=== PATIENT | female | born 1980 | race Caucasian/White ===

== ENCOUNTER 2016-07-31 08:15 | Outpatient (CLI) | payer OTHER ==
--- NOTE | 2016-07-31 10:26 | DIAGNOSTIC IMAGING REPORT ---
PROCEDURE: US OB DETAILED ANATOMIC INDICATION: ANATOMY TECHNIQUE: [place] scale, color, and spectral Doppler images of the second trimester gravid uterus were obtained. COMPARISON: 07/26/2016 OB ultrasound FINDINGS: A single living intrauterine is in breech presentation. There is regular cardiac activity at a rate of 150 beats per minute. The placenta is anterior and away from the internal cervical os. The cervix is closed measuring approximately 3.7 in length. The amniotic fluid volume is subjectively normal. Biparietal diameter 4.3 cm of 18 weeks and 3-day Head circumference 16.4 cm of 19 weeks and 1 day Abdominal circumference 14.5 cm of 19 weeks and 6-day Femur length 3.2 cm of 19 weeks and 6 days Head to abdominal circumference ratio and femur length to abdominal circumference ratios are normal. Estimated weight 310 g Composite gestational age 19 weeks and 3 days, JOHNNY 12/22/2016 There was visualization of a number of normal structures including the intracranial contents, facial features, nuchal region, spine, four-chamber heart and outflow tracts to the extent that could be visualized, diaphragm, fluid-filled stomach, kidneys, abdomen, urinary bladder, upper and lower extremities, and genitals. A three-vessel umbilical cord, normal and placental cord insertion sites were seen. IMPRESSION: 1. Single living intrauterine with a composite gestational age of 19 weeks and 3 days, JOHNNY 12/22/2016 2. Symmetric and normal anatomy.
[2016-12-12] MEDS ORDERED: METFORMIN HCL500 MG PO (17:13)
[2016-12-12] MEDS ORDERED: ZOLOFT50 MG PO (17:15)
[2016-12-12] MEDS ORDERED: IRON325 MG PO (17:16)
== END 2016-07-31 23:00 ==
LOC: US SRH 08:15
DX: Z34.92 Encounter for supervision of normal pregnancy, unspecified, second trimester (principal); Z3A.19 19 weeks gestation of pregnancy

== ENCOUNTER 2016-10-17 14:28 | Outpatient (CLI) | payer OTHER ==
--- NOTE | 2016-10-17 15:54 | DIAGNOSTIC IMAGING REPORT ---
PROCEDURE: US OB RE-EVALUATION INDICATION: VAGINAL BLEEDING TECHNIQUE: Transabdominal manuel scale and color Doppler imaging was obtained of the third trimester gravid uterus. COMPARISON: 07/31/2016 FINDINGS: Single live intrauterine is in vertex presentation. Regular heart rate at 164 beats per minute. Placenta is anterior and has a normal appearance. No retroplacental hemorrhage. The cervix is shadowed by the head. Amniotic fluid index is 11.0 cm, within normal limits. Biparietal diameter 7.7 cm, 30 weeks 6 days Head circumference 28.1 cm, 30 weeks 5 days Abdominal circumference 27.1 cm, 31 weeks 1 day Femur length 5.6 cm, 29 weeks 4 days Composite gestational age 30 weeks 4 days Estimated weight 1606 g plus/minus 241 g, 30 weeks 6 days IMPRESSION: 1. Single living intrauterine . 2. No abruption in the anterior placenta. No previa.
[2016-12-12] MEDS ORDERED: METFORMIN HCL500 MG PO (17:13)
[2016-12-12] MEDS ORDERED: ZOLOFT50 MG PO (17:15)
[2016-12-12] MEDS ORDERED: IRON325 MG PO (17:16)
== END 2016-10-17 23:00 ==
LOC: US SRH 14:28
DX: Z34.93 Encounter for supervision of normal pregnancy, unspecified, third trimester (principal); Z3A.30 30 weeks gestation of pregnancy

== ENCOUNTER 2016-11-18 09:42 | Outpatient (CLI) | payer OTHER ==
[2016-12-12] MEDS ORDERED: METFORMIN HCL500 MG PO (17:13)
[2016-12-12] MEDS ORDERED: ZOLOFT50 MG PO (17:15)
[2016-12-12] MEDS ORDERED: IRON325 MG PO (17:16)
== END 2016-11-18 10:25 | disposition home or self-care (01) ==
LOC: NST SRH 09:42 → OB SRH 09:44 → NST SRH 10:25
PROC: 4A0HXCZ Measurement of Products of Conception, Cardiac Rate, External Approach (ICD-10-PCS; principal; 2016-11-18)
DX: O24.419 Gestational diabetes mellitus in pregnancy, unspecified control (principal); Z3A.35 35 weeks gestation of pregnancy

== ENCOUNTER 2016-11-23 15:19 | Outpatient (CLI) | payer OTHER ==
[2016-12-12] MEDS ORDERED: METFORMIN HCL500 MG PO (17:13)
[2016-12-12] MEDS ORDERED: ZOLOFT50 MG PO (17:15)
[2016-12-12] MEDS ORDERED: IRON325 MG PO (17:16)
== END 2016-11-23 18:30 | disposition home or self-care (01) ==
LOC: NST SRH 15:19 → OB SRH 15:22 → NST SRH 18:30
PROC: 4A0HXCZ Measurement of Products of Conception, Cardiac Rate, External Approach (ICD-10-PCS; principal; 2016-11-23)
DX: O24.419 Gestational diabetes mellitus in pregnancy, unspecified control (principal); O09.523 Supervision of elderly multigravida, third trimester; Z3A.35 35 weeks gestation of pregnancy

== ENCOUNTER 2016-11-27 10:02 | Outpatient (CLI) | payer OTHER ==
[2016-12-12] MEDS ORDERED: METFORMIN HCL500 MG PO (17:13)
[2016-12-12] MEDS ORDERED: ZOLOFT50 MG PO (17:15)
[2016-12-12] MEDS ORDERED: IRON325 MG PO (17:16)
== END 2016-11-27 11:00 | disposition home or self-care (01) ==
LOC: NST SRH 10:02 → OB SRH 10:04 → NST SRH 11:00
PROC: 4A0HXCZ Measurement of Products of Conception, Cardiac Rate, External Approach (ICD-10-PCS; principal; 2016-11-27)
DX: O24.419 Gestational diabetes mellitus in pregnancy, unspecified control (principal); Z3A.36 36 weeks gestation of pregnancy

== ENCOUNTER → 2016-11-28 | Outpatient (CLI) | payer OTHER ==
[~2016-11-28] MED LIST: IRON325 MG PO; METFORMIN HCL500 MG PO; ZOLOFT50 MG PO
--- NOTE | 2016-11-28 17:25 | DIAGNOSTIC IMAGING REPORT ---
PROCEDURE: US ABDOMEN ULTRASOUND-COMPLETE INDICATION: Abdominal pain. Third trimester . TECHNIQUE: [place] scale and color Doppler sonographic images of the abdomen were obtained. COMPARISON: Compared to CT abdomen and pelvis (see 11/18/2010) and abdominal ultrasound (09/22/2009). FINDINGS: Gallbladder and common duct the 5 mm) are normal. Liver, spleen (12.9 cm) pancreas, kidneys (right 12.9 cm, left 13.9 cm), aorta, and inferior vena cava are normal. Viable intrauterine with cardiac activity (119). IMPRESSION: 1. Negative abdominal ultrasound.
== END ==
LOC: US SRH 11:00
DX: R10.9 Unspecified abdominal pain (principal); O24.419 Gestational diabetes mellitus in pregnancy, unspecified control; Z33.1 Pregnant state, incidental

== ENCOUNTER 2016-12-02 15:57 | Outpatient (CLI) | payer OTHER ==
--- NOTE | 2016-12-02 17:33 | DIAGNOSTIC IMAGING REPORT ---
PROCEDURE: US OB RE-EVALUATION INDICATION: PELVIC PAIN TECHNIQUE: Transabdominal manuel scale and color Doppler imaging was obtained of the third trimester gravid uterus. COMPARISON: 10/17/2016 FINDINGS: Single live intrauterine is in vertex presentation. Regular heart rate at 164 beats per minute. Placenta is anterior and fundal and has a normal appearance without previa or abruption. The cervix is closed and measures 4.2 cm in length. Amniotic fluid index is 11.3 cm. Biparietal diameter 9.2 cm, 37 weeks 3 days Head circumference 33 cm, 37 weeks 3 days Abdominal circumference 33.5 cm, 37 weeks 4 days Femur length 7.3 cm, 37 weeks 3 days Head to abdominal circumference ratio and femur length to abdominal circumference ratios are normal Estimated weight 3206 plus/minus 481 g, 7.07 pounds, 39 weeks 2 days Composite gestational age 37 weeks 3 days IMPRESSION: 1. Single viable intrauterine with a gestational age of 37 weeks 3 days by today's measurements, 2 days ahead of the initially assigned gestational age. 2. Estimated weight is 7.07 pounds. 3. Symmetric and appropriate growth since the previous study.
[2016-12-12] MEDS ORDERED: METFORMIN HCL500 MG PO (17:13)
[2016-12-12] MEDS ORDERED: ZOLOFT50 MG PO (17:15)
[2016-12-12] MEDS ORDERED: IRON325 MG PO (17:16)
== END 2016-12-02 23:00 ==
LOC: US SRH 15:57
DX: O26.893 Other specified pregnancy related conditions, third trimester (principal); R10.2 Pelvic and perineal pain; Z3A.37 37 weeks gestation of pregnancy

== ENCOUNTER 2016-12-03 09:38 | Outpatient (CLI) | payer OTHER ==
[2016-12-12] MEDS ORDERED: METFORMIN HCL500 MG PO (17:13)
[2016-12-12] MEDS ORDERED: ZOLOFT50 MG PO (17:15)
[2016-12-12] MEDS ORDERED: IRON325 MG PO (17:16)
== END 2016-12-03 13:00 | disposition home or self-care (01) ==
LOC: OBC SRH 09:38 → OB SRH 09:41 → OBC SRH 13:00
PROC: 4A0HXCZ Measurement of Products of Conception, Cardiac Rate, External Approach (ICD-10-PCS; principal; 2016-12-03)
DX: O24.419 Gestational diabetes mellitus in pregnancy, unspecified control (principal); O09.523 Supervision of elderly multigravida, third trimester; Z3A.37 37 weeks gestation of pregnancy
CPT/HCPCS: 40003; 40016

== ENCOUNTER 2016-12-10 10:15 | Outpatient (CLI) | payer OTHER ==
[2016-12-12] MEDS ORDERED: METFORMIN HCL500 MG PO (17:13)
[2016-12-12] MEDS ORDERED: ZOLOFT50 MG PO (17:15)
[2016-12-12] MEDS ORDERED: IRON325 MG PO (17:16)
== END 2016-12-10 11:18 | disposition home or self-care (01) ==
LOC: NST SRH 10:15 → OB SRH 10:17 → NST SRH 11:18
PROC: 4A1HXCZ Monitoring of Products of Conception, Cardiac Rate, External Approach (ICD-10-PCS; principal; 2016-12-10)
DX: O24.419 Gestational diabetes mellitus in pregnancy, unspecified control (principal); Z3A.39 39 weeks gestation of pregnancy

== ENCOUNTER 2016-12-13 07:30 | Inpatient (IN) | payer OTHER ==
--- NOTE | 2016-12-12 09:32 | HISTORY AND PHYSICAL ---
ADMITTED: 12/16/2016 CHIEF COMPLAINT: 1. Term intrauterine with planned repeat section HISTORY OF PRESENT ILLNESS: A 36-year-old 8, para 6, term 7, living child 6, SAB 1, ectopic 0, with history of repeat sections, presents for preoperative H&P. She has complaint of abdominal pain, primarily in the right flank, which has been bothersome for several weeks. This has been evaluated with ultrasound and NSTs and found to be benign and felt to be due to adhesions. She also knows she has had increased nausea and vomiting in the last few weeks. She denies vaginal spotting, bleeding, and denies contractions. history is remarkable for O-negative blood type, negative antibody screen. Hemoglobin 10.6, hematocrit 35.4, benign Pap, rubella immune, VDRL negative, hepatitis B surface antigen negative, HIV negative, with RhoGAM given on 10/10/2016. Glucose tolerance test deferred due to known gestational diabetes, and PCOS, with the patient on metformin throughout . MEDICAL/SURGICAL HISTORY: Past medical history remarkable for PCOS, requiring metformin for many years, also remarkable for gestational diabetes, treated initially with metformin with good control; as fasting sugars elham over 100, glimepiride was added and is increased again on the day of this visit. See medication list. Additional medical problems have included obstructive sleep apnea, Sindhu syndrome. Past surgeries: sections for all deliveries. MEDICATIONS: 1. Glimepiride 1 mg 3 tablets p.o. daily. 2. Iron 325 mg 1 p.o. b.i.d. 3. Zofran 4 mg 1 p.o. daily p.r.n. nausea. 4. Vitamin D 2000 units 1 p.o. daily. 5. Zoloft 100 mg 1 p.o. daily. 6. Metformin 1000 mg 1 p.o. b.i.d. and 1/2 pill at noon. ALLERGIES: 1. IODINE. SOCIAL HISTORY: , Roman Catholic, homemaker. Habits: Smoking none. Alcohol none. Drug use none. FAMILY HISTORY: Father has dementia and mother had cancer of unknown type. REVIEW OF SYSTEMS: HEENT: Denies vision change, hearing change, sore throat, sinus pain. Respiratory: Denies shortness of breath, paroxysmal nocturnal dyspnea or cough. Cardiac: Denies palpitations, chest pain, or paroxysmal nocturnal dyspnea. Gastrointestinal: Positive for nausea as noted. Denies melena, bright red blood per rectum. Genitourinary: Denies dysuria, hematuria, or frequency. PHYSICAL EXAMINATION: GENERAL: Date of evaluation was 12/10/2016. Well-developed, well-nourished female in no acute distress. VITAL SIGNS: Blood pressure 130/80, pulse 96 degrees, weight 260. Temperature afebrile. HEENT: Clear. NECK: Supple, without adenopathy or thyromegaly. CHEST: Clear to auscultation and percussion. HEART: Regular rate and rhythm without murmur. ABDOMEN: Gravid, with fundal height of 37 cm. heart tones 160 beats per minute. Vertex presentation. section scar noted. BACK: Straight, without CVA tenderness. EXTREMITIES: Without cyanosis, clubbing, or edema. NEUROLOGIC: Intact and symmetric. GENITAL AND RECTAL: Deferred. BREASTS: Benign. IMPRESSION: 1. Term intrauterine with history of prior repeat sections, scheduled for repeat at 39 weeks estimated gestational age on 12/16/2016. 2. Gestational diabetes. 3. Polycystic ovarian syndrome. 4. History of depression. 5. Abdominal pain with nausea and vomiting and recently benign ultrasound. PLAN: Scheduled section on 12/16/2016. Continue care otherwise. Will monitor pain.
[2016-12-13] VITALS (8 sets, daily range): BP systolic 103–113; BP diastolic 59–67
[~2016-12-13] VITALS: Ht 172.7 cm; Wt 117.5 kg
--- NOTE | 2016-12-13 11:35 | NUR ---
PT IS IN FOR REPEAT C-SEC FOR #7 TODAY. PT HAS BEEN NPO SINCE YESTERDAY AM PER PT. AND PT PLACED ON EFM WITH TOCO/US, BASELINE FHR; 130-135, MULTI ACCELS TO 160s, MODERATE VARIABILTIES, NO DECELS. REACTIVE STRIPS. IV STARTED, LAB;CBC, T&S HAD DRAWN. LR @125ML/HR STARTED. SCDs APPLIED, ALANIZ APOLINAR 14Fr INSERTED. PT IS AWAITING FOR O.R CALL @ THIS TIME NOTED.
--- NOTE | 2016-12-13 11:40 | NUR ---
HAIR ON LOWER ABD SITES & PUBIC AREAS GOT CLIPPED. PT DENIES ALL DISCOMFORTS @ THIS TIME. NO C/Os. PT IS AWAITING FOR O.R CALL @ THIS TIME.
--- NOTE | 2016-12-13 12:10 | NUR ---
DR QUINN IS HERE & SURGERY/C-SEC CONSENTs SIGNED & PLACED IN THE CHART.
--- NOTE | 2016-12-13 13:02 | NUR ---
PTs GIVEN PRE-OP MEDS:BICITRA 30ML/PO, ZOFRAN 4MG/IV, PER DR CHILDERS'S ORDERS NOTED.
--- NOTE | 2016-12-13 15:57 | NUR ---
PT RECEIVED TO PACU AWAKE AND COMFORTABLE. INITIALLY NOT ABLE TO MOVE LOWER EXTREMITIES AND SENSING COLD AT T6. VSS. URINE DARK YELLOW, GIVING FLUID BOLUS IV.
--- NOTE | 2016-12-13 16:33 | NUR ---
PT ABLE TO WIGGLE TOES ON THE RIGHT, GROSS LEG MOVEMENT ON THE LEFT PRIOR TO TRANSFER TO OB. SENSING COLD AT T10. ABLE TO TURN HERSELF ONTO HER SIDE TO PROTECT AIRWAY WITHOUT ASSISTANCE. VSS. PERIPAD FULL, FUNDUS FIRM, NO CLOTS EXPRESSED WITH FUNDAL MASSAGE. PT COMFORTABLE.
--- NOTE | 2016-12-13 20:04 | OPERATIVE REPORT ---
DATE OF SURGERY: 12/13/2016 SURGEON: Aldo Santoro MD IMAGING SERVICES DIRECTOR: Meg Paez MD PREOPERATIVE DIAGNOSES: 1. Term intrauterine 2. Gestational diabetes 3. Acalculous cholecystitis 4. Low O2 saturations POSTOPERATIVE DIAGNOSES: 1. Term intrauterine 2. Gestational diabetes 3. Acalculous cholecystitis 4. Low O2 saturations PROCEDURE PERFORMED: 1. Repeat low transverse section ANESTHESIA: Spinal, per doctor Subitch. COMPLICATIONS: None. ESTIMATED BLOOD LOSS: 500 mL. CONDITION: Stable post-procedure. SURGICAL TECHNIQUE: After appropriate consent was obtained, patient was taken to the operating theater and spinal anesthesia induced. Sterile prep and drape was performed in the routine fashion. Pfannenstiel incision was carried down sharply to the fascia, which was sharply entered. Incision was bluntly extended bilaterally. Lower uterine segment was identified. The lower uterine segment was very thinned out. Surgical incision was carried down sharply to the amnion, which was bluntly entered with pickups. Clear fluid was obtained. vertex was identified, elevated and removed with fundal pressure and remaining parts delivered. Nasopharynx was suctioned, cord was clamped bilaterally and ligated and the passed to the waiting nursery team. Male infant, Apgars 9 and 9 obtained. Cord blood samples were obtained. The placenta was then manually extracted and removed from the surgical field. The uterus was then delivered onto the abdomen and endometrium debrided with gauze sponge. Wound was evaluated and ring clamps placed on the margin, the cervix was opened with a ring clamp, which was passed off the field. The wound was then closed with a #1 Vicryl running locked suture and a second layer of #1 Vicryl horizontal mattress suture. Hemostasis was obtained with a small amount of cautery. Tubes and ovaries were examined and found to be normal. The uterus was returned to the abdominal cavity after irrigation behind the uterus. Hemostasis was again confirmed. Fascia was closed with #1 running Vicryl suture. Hemostasis was again confirmed and cautery performed in 2 spots on the subcutaneous tissue. Subcutaneous tissue was then closed with a 3-0 Vicryl interrupted suture in 5 places. Skin was then closed with Insorb surgical sutures and sterile dressing placed. Instrument and sponge counts were correct.
[2016-12-14] VITALS: BP 93/58
[2016-12-14 08:30] VITALS: BP 101/66
[2016-12-14 12:05] VITALS: BP 117/75
[2016-12-14 15:37] VITALS: BP 112/62
[2016-12-14 20:30] VITALS: BP 105/62
[2016-12-15 00:10] VITALS: BP 108/68
[2016-12-15 08:05] VITALS: BP 103/56
--- NOTE | 2016-12-15 08:30 | NUR ---
Dr Santoro is here & made round & New orders entered for DC pt & baby home today noted.
--- NOTE | 2016-12-15 09:02 | Provider's Discharge Care Plan ---
Problem, Goal, Plan Problem List 1. S/P repeat low transverse Goals: Improved health/wellness Instructions: Routine post care 2. Biliary colic Goals: Improved health/wellness Instructions: low fat diet 3. PCOS (polycystic ovarian syndrome) Goals: Improved health/wellness Instructions: Take meds as directed 4. Gestational diabetes Goals: Improve disease control Instructions: Healthy diet and monitor AM sugars.
--- NOTE | 2016-12-15 09:15 | NUR ---
Pt, Given DC instructions & F/U infos, Indicated understood. Pt DC'd home with Her baby & accompanied by, Hospital escort done via [facility] noted.
--- NOTE | 2016-12-15 23:10 | DISCHARGE SUMMARY ---
ADMIT DATE: 12/13/2016 DISCHARGE DATE: 12/15/2016 ADMITTING DIAGNOSES: 1. Term intrauterine 2. Repeat section 3. Gestational diabetes mellitus 4. Polycystic ovarian syndrome 5. Acalculous cholecystitis/biliary colic DISCHARGE DIAGNOSES: 1. Term intrauterine 2. Repeat section 3. Gestational diabetes mellitus 4. Polycystic ovarian syndrome 5. Acalculous cholecystitis/biliary colic PROCEDURE: Low transverse section, repeat. BRIEF HISTORY: The patient presented at 39 weeks with increasing episodes of right upper quadrant abdominal pain. Her had been complicated by PCOS and gestational diabetes, so plan was for section at 39 weeks. It was scheduled for 3 days later than the actual admission; but because of increasing abdominal pain, decision was made to proceed with section. Ultrasound the week prior to admission was benign. NSTs were benign. HOSPITAL COURSE: The patient was admitted and repeat section performed in the routine fashion. See also operative summary. Surgery was uncomplicated. Postoperative recovery was uncomplicated. The patient progressed well with increasing activity , oral intake, and care of her baby, as well as bowel and bladder function. She was especially pleased with Toradol, which gave for good pain relief. DISCHARGE INSTRUCTIONS/MEDICATIONS: Disposition: Home. Discharge medications: Metformin 1000 mg p.o. b.i.d., sertraline 100 mg p.o. daily, iron sulfate 325 mg p.o. b.i.d. The patient was also given a FLY pack for use after discharge including ibuprofen, stool softeners, and vitamins as needed. Special Instructions: Follow up with me in 6 weeks. Also will plan wound check at check next week.
== END 2016-12-15 10:15 | disposition home or self-care (01) | DRG 765 ==
LOC: U SRH 07:30 → OB SRH 10:18 → U SRH 13:30 → OB SRH 16:17 → U SRH 12-16 07:30
PROVIDERS: ADMIT Family Medicine
PROC: 10D00Z1 Extraction of Products of Conception, Low, Open Approach (ICD-10-PCS; principal; 2016-12-13 13:30)
DX: O34.211 Maternal care for low transverse scar from previous cesarean delivery (principal); K80.10 Calculus of gallbladder with chronic cholecystitis without obstruction; Z37.0 Single live birth; Z3A.38 38 weeks gestation of pregnancy; O99.62 Diseases of the digestive system complicating childbirth; O24.425 Gestational diabetes mellitus in childbirth, controlled by oral hypoglycemic drugs; E28.2 Polycystic ovarian syndrome; O99.52 Diseases of the respiratory system complicating childbirth; R09.02 Hypoxemia
CPT/HCPCS: 40010; 50002; 60001; 80837; 83366; 83411; 83426; 83526; 84038; 90001; 90074; 90098; 90155; 91004; 91162; 91163; 95059